=== PATIENT | male | born 2005 | race Caucasian/White ===

== ENCOUNTER 2025-06-30 02:05 | Inpatient (IN) | payer MEDICAID ==
[~2025-06-30] VITALS: Ht 30.5 cm; Wt 0.5 kg
[2025-06-30] VITALS (9 sets, daily range): BP systolic 111; BP diastolic 50; PULSE 70–120; RESP 16–22; O2SAT 94–100
--- NOTE | 2025-06-30 02:24 | ED.PDOC ---
Psychiatric HPI Comments 20-year-old male who came to ER via EMS for overdose. Per EMS, patient has a history of asthma, he picked up at his home, where family saw him lying unresponsive. Suspect of narcotic overdose, so patient was given 2 of Narcan. Upon arrival paramedics, saturating at 40s at room air, was given albuterol Atrovent nebulization. Patient gradually waking up. Upon arrival of the ER, patient admits that he took cocaine and alcohol. Denies being suicidal. REVIEW OF SYSTEMS: General: No fever, no chills, or fatigue HEENT: No sore throat, no earache, no congestion, no neck pain. Cardiac: No chest pain. No palpitations. Lungs: No shortness of breath, no cough. GI: No nausea, no vomiting, no diarrhea, no constipation, no abdominal pain : No dysuria, frequency, or urgency. No hematuria. Musculoskeletal: No joint pain , no joint swelling, no extremity edema. Skin: No rash, no itching. Neuro: No headache, no dizziness, no weakness EXAM: General: Awake, alert and oriented. No acute distress. Skin: Skin in warm, dry and intact. Appropriate color for ethnicity. HEENT: The head is normocephalic and atraumatic. Conjunctivae are clear without exudates or hemorrhage. Sclera is non-icteric. EOM are intact. No signs of nystagmus. Eyelids are normal in appearance without swelling or lesions. Oral mucosa is pink and moist Neck: The neck is supple with normal range of motion. No JVD. Cardiac: Heart rate and rhythm are normal. No murmurs, gallops, or rubs are auscultated. Respiratory: No signs of respiratory distress. Lung sounds are clear in all lobes bilaterally without rales, rhonchi, or wheezes. Abdominal: Abdomen is soft, non-tender without distention. Bowel sounds are present and normoactive in all four quadrants. Extremities: Upper and lower extremities are atraumatic in appearance without deformity or edema. Neurological: The patient is awake, alert and oriented to person, place, and time with normal speech. Speech is clear. There is no facial asymmetry. Psychiatric: Appropriate mood and affect. Good judgement and insight Chief Complaint: Overdose Time Seen by MD: 02:23 Primary Care Provider: [facility] Reviewed Notes: Field Services Manager Notes Information Source: Patient, Emergency Med Personnel Mode of Arrival: EMS Severity: Unable to Care for Self, Unable to Control Self Severity of Pain: Moderate Severity of Mental Status: Moderate Severity of Symptoms: Moderate Timing: Minutes Duration: Since onset Attempt: Ingestion Ingestion: Intentional, Drug(s) Ingested (Cocaine), ETOH Circumstance: Found:Unconscious Current substance abuse: ETOH, Cocaine History of: Alcoholism, Substance Abuse Past Medical History PAST MEDICAL HISTORY: Asthma Surgical History: Denies all surgeries Family History Family History: Reviewed,noncontributory to illness, Unknown Social History Smoker: Non-Smoker Alcohol: Occasionally Drugs: Cocaine, Marijuana Lives In: Home EKG EKG : Pulse Rate (adult): 171 Cardiac Rhythm: Afib Was a procedure done? Was a procedure done?: No Psych Differential Dx OD Differential Dx: Anxiety, Depression, Drug Overdose, Accidental, Intentional, Panic Disorder, Substance Abuse, Suicidal Gesture X-Ray, Labs, Meds, VS Vital Signs Date Time Temp Pulse Resp B/P (MAP) Pulse Ox O2 Delivery O2 Flow Rate FiO2 06/30/25 04:05 145 125/55 (78) 06/30/25 03:52 117 06/30/25 02:44 70 20 97 Room Air* 0 06/30/25 02:44 98.1 180 20 121/78 (92) 97 98.1 06/30/25 02:44 20 93 Room Air* 0 06/30/25 02:24 171 06/30/25 02:10 171 06/30/25 02:05 97.9 84 14 102/68 94 97.9 Lab Test 06/30/25 02:28 06/30/25 02:27 Range/Units Blood Gas Specimen Type Arterial Blood Gas Sample Site Right radial Blood Gas Patient Temperature 37.0 Arterial Blood Date Drawn [id number] Arterial Blood pH 7.264 L 7.350-7.450 Arterial Blood Partial Pressure CO2 39.0 35.0-48.0 mmHg Arterial Blood Partial Pressure O2 77.4 L 83.0-108.0 mmHg Arterial Blood HCO3 17.3 L 21.0-28.0 mmol/L Arterial Blood Oxygen Saturation 93.6 L 94.0-98.0 % Arterial Blood Base Excess -9.1 L -2.0-3.0 mmol/L Arterial Blood Oxyhemoglobin 92.5 L 94.0-98.0 % Arterial Blood Carboxyhemoglobin 0.5 0.5-1.5 % Arterial Blood Methemoglobin 0.7 0.0-1.5 % Jimbo Test Yes Blood Gas Total Hemoglobin 16.60 13.5-17.5 g/dL Blood Gas Modality Nasal cannula Blood Gas Spontaneous Rate 20 FiO2 % 36.0 White Blood Count 13.8 H 4.4-10.8 10^3/uL Red Blood Count 5.45 4.5-5.90 10^6/uL Hemoglobin 16.6 13.5-17.5 g/dL Hematocrit 50.4 41.0-53.0 % Mean Corpuscular Volume 92.5 80.0-100.0 fL Mean Corpuscular Hemoglobin 30.4 28.0-32.0 pg Mean Corpuscular Hemoglobin Concent 32.9 32.0-36.0 g/dL Red Cell Distribution Width 13.4 11.8-14.3 % Platelet Count 249 140-450 10^3/uL Mean Platelet Volume 8.0 6.9-10.8 fL Neutrophils (%) (Auto) 81.9 H 37.0-80.0 % Lymphocytes (%) (Auto) 10.5 10.0-50.0 % Monocytes (%) (Auto) 4.7 0.0-12.0 % Eosinophils (%) (Auto) 2.3 0.0-7.0 % Basophils (%) (Auto) 0.6 0.0-2.0 % Neutrophils # (Auto) 11.3 H 1.6-8.6 10 ^3/uL Lymphocytes # (Auto) 1.5 0.4-5.4 10 ^3/uL Monocytes # (Auto) 0.6 0-1.3 10 ^3/uL Eosinophils # (Auto) 0.3 0-0.8 10 ^3/uL Basophils # (Auto) 0.1 0-0.2 10 ^3/uL Nucleated Red Blood Cells 0.1 % Sodium Level 144 136-145 mmol/L Potassium Level 5.0 3.5-5.1 mmol/L Chloride Level 104 98-107 mmol/L Carbon Dioxide Level 27 20-31 mmol/L Anion Gap 13 5-15 Blood Urea Nitrogen 10 9-23 mg/dL Creatinine 1.27 0.700-1.30 mg/dL Glomerular Filtration Rate Calc 82 >90 mL/min BUN/Creatinine Ratio 7.9 L 10.0-20.0 Serum Glucose 138 H 74-106 mg/dL Calcium Level 8.9 8.7-10.4 mg/dL Troponin I High Sensitivity 43 </=54 ng/L Plasma/Serum Blood Alcohol 120.4 H <10 mg/dL Current Medications Medications (Trade) Dose Ordered Sig/Sekou Route Start Time Stop Time Status Last Admin Ipratropium [place] (Atrovent Medneb) 0.5 mg ONCE ONCE NEB 06/30/25 02:30 06/30/25 02:31 DC 06/30/25 02:44 Methylprednisolone Sodium Succinate (Solu Medrol) 80 mg ONCE ONCE IV 06/30/25 02:30 06/30/25 02:31 DC 06/30/25 02:42 Sodium Chloride 1,000 ml @ 1,000 mls/hr Q1H ONCE IV 06/30/25 02:30 06/30/25 03:29 DC 06/30/25 02:42 Levalbuterol HCl (Xopenex Medneb) 0.625 mg ONCE ONCE NEB 06/30/25 02:30 06/30/25 02:31 DC 06/30/25 02:44 Diltiazem HCl (Cardizem Injection) 20 mg ONCE ONCE IV 06/30/25 03:00 06/30/25 03:01 DC 06/30/25 03:14 Sodium Chloride 1,000 ml @ 1,000 mls/hr Q1H ONCE IV 06/30/25 03:15 06/30/25 04:14 DC 06/30/25 03:25 Sodium Chloride 1,000 ml @ 130 mls/hr Q7H42M ONCE IV 06/30/25 03:15 06/30/25 10:56 06/30/25 03:25 Ceftriaxone Sodium 50 ml @ 100 mls/hr ONCE ONCE IV 06/30/25 03:45 06/30/25 04:14 DC 06/30/25 03:57 Vancomycin HCl 250 ml @ 250 mls/hr ONCE ONCE IV 06/30/25 03:45 06/30/25 04:44 DC 06/30/25 03:57 Time of 1ST Reevaluation: 05:37 Reevaluation 1ST: Improved Patient Education/Counseling: Other (Need for admission) Family Education/Counseling: Other (Need for admission) Departure 1 Departure Time of Disposition: 04:05 Impression: Primary Impression: Asthma exacerbation Additional Impressions: Polysubstance overdose SVT (supraventricular tachycardia) Disposition: 09 ADMITTED INPATIENT Condition: Stable Comments 20-year-old male who presented in the emergency department after overdosing on alcohol and cocaine. Patient was found to be in SVT at a rate of 180s. Heart rate improved with Cardizem. Patient admitted to hospitalist service for further treatment, evaluation and monitoring. Extensive evaluation was performed in attempt to identify or rule out: (See differential diagnosis section) The following tests were ordered, and results were reviewed by me and discussed with patient: (See diagnostic results section) The following test were independently interpreted by me: EKG I reviewed and agreed with the following test results read by other providers: Chest x-ray Additional information was gathered from interviewing the following independent historians: Patient's family members at bedside, EMS personnel Discussion of management or test interpretation with external physician/other qualified health hospice care consultant: N/A Addressed an acute or chronic illness that poses a threat to life or bodily function: SVT, acute asthma exacerbation Decision regarding hospitalization or escalation of hospital level of care: Risk and benefits of admission for further treatment of patient's condition was considered. Due to patient's current clinical condition, high risk of decline and poor outcome if discharged and need for further inpatient management and monitoring, patient will be admitted to the hospital. Discussed with patient. Critical Care Note Critical Care Time?: Yes (45 min-critical care time only) Critical care comment: Due to a high probability of clinically significant, life threatening deterioration, the patient required my highest level of preparedness to intervene emergently and I personally spent this critical care time directly and personally managing the patient. This critical care time included obtaining a history; examining the patient; pulse oximetry; ordering and review of studies; arranging urgent treatment with development of a management plan; evaluation of patient's response to treatment; frequent reassessment; and, discussions with other providers. This critical care time was performed to assess and manage the high probability of imminent, life-threatening deterioration that could result in multi-organ failure. It was exclusive of separately billable procedures and treating other patients and teaching time. Please see my other sections and the rest of the note for further information on patient assessment and treatment. Stability Stability form required: No Heart Score Heart Score: Heart Score Response (Comments) Value History N/A 0 EKG N/A 0 Age N/A 0 Risk Factors N/A 0 Troponin N/A 0 Total 0 I personally scribed for LAUREN CHAUDHRY MD ([email or web address]) on 06/30/25 at 02:24. Electronically submitted by Krishna Keating ([facility]). I personally scribed for LAUREN CHAUDHRY MD ([email or web address]) on 06/30/25 at 02:24. Electronically submitted by Krishna Ketaing ([facility]). LAUREN CHAUDHRY MD Jun 30, 2025 02:24
[2025-06-30] MEDS: SODIUM CHLORIDE 0.9% 1,000 ML IV ONE ×3 (02:42→03:25)
[2025-06-30] MEDS: methylPREDNISolone SOD SUCC 125 MG/2 ML VL IV ONE (02:42)
[2025-06-30] MEDS: LEVALBUTEROL HCL 1.25 MG/3 ML NEB NEB ONE (02:44)
[2025-06-30] MEDS: IPRATROPIUM BROM 0.5 MG/2.5ML INH SOL NEB ONE (02:44)
[2025-06-30 02:50] LABS: Base Excess -9.1 mmol/L (-2.0-3.0)
[2025-06-30 02:50] LABS: Hematocrit 50.4 % (41.0-53.0); Hemoglobin 16.6 g/dL (13.5-17.5); Mean Corpuscular Hemoglobin 30.4 pg (28.0-32.0); Mean Corpuscular Volume 92.5 fL (80.0-100.0); Nucleated Red Blood Cells % 0.1 %
--- NOTE | 2025-06-30 03:08 | DVH ---
CHEST RADIOGRAPH Indication: Shortness of breath Technique: Single frontal view of the chest was obtained COMPARISON: None FINDINGS: The patient is moderately rotated to the right. Lines and Tubes: None Lungs: Clear Pleura: No effusion. No pneumothorax. Cardiomediastinal contours: Unremarkable Bones: Unremarkable IMPRESSION: 1. No radiographic evidence of acute cardiopulmonary abnormality.
[2025-06-30] MEDS: dilTIAZem 25 MG/5 ML VIAL IV ONE ×2 (03:14→06:30)
[2025-06-30 03:48] LABS: Chloride 104 mmol/L (98-107); Potassium 5.0 mmol/L (3.5-5.1); Sodium 144 mmol/L (136-145)
[2025-06-30 03:49] LABS: Anion Gap 13 (5-15); Calcium 8.9 mg/dL (8.7-10.4); Carbon Dioxide 27 mmol/L (20-31)
[2025-06-30 03:54] LABS: BUN/Creatinine Ratio 7.9 (10.0-20.0); Blood Urea Nitrogen 10 mg/dL (9-23)
[2025-06-30 03:55] LABS: Glucose 138 mg/dL (74-106)
[2025-06-30] MEDS: VANCOMYCIN 1GM/250ML KIT 250 ML IV ONE (03:57)
[2025-06-30] MEDS ORDERED: DOCUSATE SOD 100 MG CAP PO PRN (06:00)
[2025-06-30] MEDS ORDERED: NITROGLYCERIN 0.4 MG SL TAB SL PRN (06:00)
[2025-06-30] MEDS ORDERED: MORPHINE SULFATE INJ 2 MG/ml SYRG IV PRN (06:00)
[2025-06-30] MEDS ORDERED: ACETAMINOPHEN 325 MG TAB PO PRN (06:00)
[2025-06-30] MEDS ORDERED: ONDANSETRON HCL 4 MG/2 ML VIAL IV PRN (06:00)
[2025-06-30] MEDS ORDERED: LEVALBUTEROL HCL 1.25 MG/3 ML NEB NEB SCH (06:00)
--- NOTE | 2025-06-30 06:06 | DVHHP2 ---
History of Present Illness Reason for Visit: Polysubstance overdose History of Present Illness The patient is a 20-year-old male with past medical history of asthma and polydrug abuse who presented to [facility] ED for evaluation of overdose. As reported by EMS, patient was picked up at his home unresponsive, O2 saturation in the 40s on room air, and was given 2 mg of Narcan, breathing treatment with positive effect. Patient gradually waking up. Patient was seen and evaluated in the ED admit that he took cocaine and alcohol, laboratory data shows WBC 13.8, platelets 249, sodium 144, potassium 5.0, BUN 10, creatinine 1.27, glucose 138, calcium 8.9, troponin 43, serum alcohol 120.4, blood pressure 125/55, heart rate 171 trending down to 122, temperature 98.1 F, O2 saturation 97% on oxygen. Chest x-ray show no evidence of acute cardiopulmonary abnormality. Please see medication orders section in the computer. On my assessment, patient remains mild altered, denies suicidal ideation, no diaphoresis, currently on oxygen, no diarrhea, no vomiting, no fever, no chills. Patient was admitted for further evaluation and medical management. Past Medical History Asthma Past Surgical History Denies all surgeries Family History Reviewed, noncontributory to the management of this case. Past Social History The patient lives at home, denies smoking, drinks alcohol occasionally, uses cocaine and marijuana. Review of Systems Constitutional: Yes: Weakness; No: Fever, Chills, Sweats, Malaise, Other Eyes: No: Pain, Vision change, Conjunctivae inflammation, Eyelid inflammation, Other, Redness ENT: No: Ear pain, Ear discharge, Nose pain, Nose discharge, Nose congestion, Mouth pain, Mouth swelling, Throat pain, Throat swelling, Other Respiratory: No: Cough, Dry, Shortness of breath, SOB with excertion, Wheezing, Hemoptysis, Pleuritic Pain, Sputum, Wheezing, Other Cardiovascular: No: Chest Pain, Palpitations, Orthopnea, Paroxysmal Noc. Dyspnea, Edema, Lt Headedness, Other Gastrointestinal: No: Nausea, Vomiting, Abdominal Pain, Diarrhea, Constipation, Melena, Hematochezia, Other Genitourinary: No Dysuria, No Frequency, No Incontinence, No Hematuria, No Retention, No Other Musculoskeletal: No: other, neck pain, shoulder pain, arm pain, back pain, hand pain, leg pain, foot pain Skin: No: Rash, Lesions, Jaundice, Bruising, Other Neurological: No: Weakness, Numbness, Incoordination, Change in speech, Confusion, Seizures, Other Allergies: Coded Allergies: NO KNOWN ALLERGIES (Unverified , 10/24/11) Medications Current Medications Medications Dose Ordered Sig/Sekou Route Start Time Stop Time Status Last Admin Dose Admin Levalbuterol HCl 0.625 mg Q6HR NEB 06/30/25 06:00 Cancel Exam Vital Signs Vital Signs Date Time Temp Pulse Resp B/P (MAP) Pulse Ox O2 Delivery O2 Flow Rate FiO2 06/30/25 04:05 145 125/55 (78) 06/30/25 02:44 20 97 Room Air* 0 21 06/30/25 02:44 98.1 98.1 General Appearance: Alert, Cooperative, No acute distress, Other (Oriented x2) HEENT: Atraumatic, PERRLA, EOMI, Mucous membr. moist/pink Respiratory: Normal air movement Cardiovascular: Regular rate, Normal S1, Normal S2, No murmurs Abdominal: Normal bowel sounds, Soft, No tenderness, No hepatospenomegaly, No masses Extremities: No clubbing, No cyanosis, No edema, Normal pulses, No tenderness/swelling Skin: No rashes, No significant lesion Neuro: Normal speech, Normal tone, Sensation intact, Cranial nerves 3-12 NL, Reflexes 2+ Psych/Mental Status: Mental status NL, Mood NL Labs/Xrays Labs Test 06/30/25 02:28 06/30/25 02:27 Range/Units Blood Gas Specimen Type Arterial Blood Gas Sample Site Right radial Blood Gas Patient Temperature 37.0 Arterial Blood Date Drawn [id number] Arterial Blood pH 7.264 L 7.350-7.450 Arterial Blood Partial Pressure CO2 39.0 35.0-48.0 mmHg Arterial Blood Partial Pressure O2 77.4 L 83.0-108.0 mmHg Arterial Blood HCO3 17.3 L 21.0-28.0 mmol/L Arterial Blood Oxygen Saturation 93.6 L 94.0-98.0 % Arterial Blood Base Excess -9.1 L -2.0-3.0 mmol/L Arterial Blood Oxyhemoglobin 92.5 L 94.0-98.0 % Arterial Blood Carboxyhemoglobin 0.5 0.5-1.5 % Arterial Blood Methemoglobin 0.7 0.0-1.5 % Jimob Test Yes Blood Gas Total Hemoglobin 16.60 13.5-17.5 g/dL Blood Gas Modality Nasal cannula Blood Gas Spontaneous Rate 20 FiO2 % 36.0 White Blood Count 13.8 H 4.4-10.8 10^3/uL Red Blood Count 5.45 4.5-5.90 10^6/uL Hemoglobin 16.6 13.5-17.5 g/dL Hematocrit 50.4 41.0-53.0 % Mean Corpuscular Volume 92.5 80.0-100.0 fL Mean Corpuscular Hemoglobin 30.4 28.0-32.0 pg Mean Corpuscular Hemoglobin Concent 32.9 32.0-36.0 g/dL Red Cell Distribution Width 13.4 11.8-14.3 % Platelet Count 249 140-450 10^3/uL Mean Platelet Volume 8.0 6.9-10.8 fL Neutrophils (%) (Auto) 81.9 H 37.0-80.0 % Lymphocytes (%) (Auto) 10.5 10.0-50.0 % Monocytes (%) (Auto) 4.7 0.0-12.0 % Eosinophils (%) (Auto) 2.3 0.0-7.0 % Basophils (%) (Auto) 0.6 0.0-2.0 % Neutrophils # (Auto) 11.3 H 1.6-8.6 10 ^3/uL Lymphocytes # (Auto) 1.5 0.4-5.4 10 ^3/uL Monocytes # (Auto) 0.6 0-1.3 10 ^3/uL Eosinophils # (Auto) 0.3 0-0.8 10 ^3/uL Basophils # (Auto) 0.1 0-0.2 10 ^3/uL Nucleated Red Blood Cells 0.1 % Sodium Level 144 136-145 mmol/L Potassium Level 5.0 3.5-5.1 mmol/L Chloride Level 104 98-107 mmol/L Carbon Dioxide Level 27 20-31 mmol/L Anion Gap 13 5-15 Blood Urea Nitrogen 10 9-23 mg/dL Creatinine 1.27 0.700-1.30 mg/dL Glomerular Filtration Rate Calc 82 >90 mL/min BUN/Creatinine Ratio 7.9 L 10.0-20.0 Serum Glucose 138 H 74-106 mg/dL Calcium Level 8.9 8.7-10.4 mg/dL Troponin I High Sensitivity 43 </=54 ng/L Plasma/Serum Blood Alcohol 120.4 H <10 mg/dL PATIENT: HEBER RUIZ ACCT: [id number] UNIT: [id number] : 2005 LOC: ER ROOM / BED: / AGE / SEX: 20 / M ADM STATUS: REG ER SERVICE 0219 ORDERING PHYSICIAN: LAUREN CHAUDHRY MD PROCEDURE(s): CXR1 - CHEST XRAY 1 VIEW REASON: Shortness of breath ORDER NUMBER(s): [id number], ACCESSION NUMBER(s): [id number] CHEST RADIOGRAPH Indication: Shortness of breath Technique: Single frontal view of the chest was obtained COMPARISON: None FINDINGS: The patient is moderately rotated to the right. Lines and Tubes: None Lungs: Clear Pleura: No effusion. No pneumothorax. Cardiomediastinal contours: Unremarkable Bones: Unremarkable IMPRESSION: 1. No radiographic evidence of acute cardiopulmonary abnormality. SEPSIS Sepsis Screen Date sepsis recognized/suspect: Jun 30, 2025 Time Sepsis recognized/suspect: 0246 Recent Procedure: No On Antibiotic Therapy: No Respiratory Rate >20: No Heart Rate >90: No Temp<36 C (96.8 F) or >38.3 C: No SBP <90 or MAP <65 mmHG: No New Acute Mental Status Change: No Is the patient on CPAP, BIPAP,: No Physician Orders Electrocardigram (06/30/25 02:14) Abg W/ Co-Ox (06/30/25 02:19) Chest Xray 1 View (06/30/25 02:19) Drug Screen (06/30/25 02:19) Rn Integrity (06/30/25 ) Continous Pulse Oximetry (06/30/25 02:19) Saline Lock (06/30/25 02:19) Sodium Chloride 0.9% (06/30/25 03:15) Blood Culture (06/30/25 03:04) Urinalysis (06/30/25 03:04) Complete Blood Count (06/30/25 05:56) Comprehensive Metabolic Panel (06/30/25 05:56) Ceftriaxone Ivpb Rocephin (06/30/25 09:00) Thiamine Inj (06/30/25 06:00) Thiamine Inj (06/30/25 10:00) Folic Acid Ivpb (06/30/25 10:00) Folic Acid Ivpb (06/30/25 06:00) Multiple Vitamin Tablet (Mvi Tab) (06/30/25 10:00) Levalbuterol Hcl (Xopenex Medneb) (06/30/25 06:00) Famotidine Injection (Pepcid Injection) (06/30/25 10:00) Diltiazem Injection (Cardizem Injection) (06/30/25 06:00) * Cardiology Consult (06/30/25 05:56) Admit (06/30/25 05:56) Allergies (06/30/25 05:56) Code Status (06/30/25 05:56) Sodium Chloride Lock (Saline Lock Ns) (06/30/25 06:00) Oxygen Per Hour (06/30/25 05:56) Ondansetron Hcl (Zofran) (06/30/25 06:00) Docusate Sodium Capsule (Colace Capsule) (06/30/25 06:00) Fall Risk Precautions In Place QSHIFT (06/30/25 05:56) Complete Blood Count (07/01/25 04:00) Comprehensive Metabolic Panel (07/01/25 04:00) Cardiac Diet-2gna,Lofat,Lochol (06/30/25 Breakfast) Condition: Serious (06/30/25 05:56) Acetaminophen Tablet (Tylenol Tablet) (06/30/25 06:00) Maintain Bed Rest (06/30/25 05:56) Sequential Compression Device (06/30/25 ) Nitroglycerin Sublingual (Ntrostat Subli (06/30/25 06:00) Morphine Sulfate Injection (06/30/25 06:00) Stat Ekg For Chest Pain (06/30/25 05:56) Notify Of Changes From Base (06/30/25 05:56) Construction Project Mgr For 24 Hours (06/30/25 05:56) Emergency Dysrhythmia Protocol (06/30/25 05:56) Rhythm Strips Once Every Shift (06/30/25 05:56) Oxygen By Nasal Cannula (06/30/25 05:56) Vital Signs Date Time Temp Pulse Resp B/P (MAP) Pulse Ox O2 Delivery O2 Flow Rate FiO2 06/30/25 04:05 145 125/55 (78) 06/30/25 03:52 117 06/30/25 02:44 70 20 97 Room Air* 0 21 06/30/25 02:44 98.1 180 20 121/78 (92) 97 98.1 06/30/25 02:44 20 93 Room Air* 0 21 06/30/25 02:24 171 06/30/25 02:10 171 06/30/25 02:05 97.9 84 14 102/68 94 97.9 Laboratory Tests Test 06/30/25 02:27 White Blood Count 13.8 10^3/uL (4.4-10.8) H Medications Medications Dose Ordered Sig/Sekou Route Start Time Stop Time Status Last Admin Dose Admin Ceftriaxone Sodium 50 ml @ 100 mls/hr ONCE ONCE IV 06/30/25 03:45 06/30/25 04:14 DC 06/30/25 03:57 100 MLS/HR Diltiazem HCl 20 mg ONCE ONCE IV 06/30/25 03:00 06/30/25 03:01 DC 06/30/25 03:14 20 MG Ipratropium [place] 0.5 mg ONCE ONCE NEB 06/30/25 02:30 06/30/25 02:31 DC 06/30/25 02:44 0.5 MG Levalbuterol HCl 0.625 mg ONCE ONCE NEB 06/30/25 02:30 06/30/25 02:31 DC 06/30/25 02:44 0.625 MG Methylprednisolone Sodium Succinate 80 mg ONCE ONCE IV 06/30/25 02:30 06/30/25 02:31 DC 06/30/25 02:42 80 MG Sodium Chloride 1,000 ml @ 130 mls/hr Q7H42M ONCE IV 06/30/25 03:15 06/30/25 10:56 06/30/25 03:25 130 MLS/HR Sodium Chloride 1,000 ml @ 1,000 mls/hr Q1H ONCE IV 06/30/25 02:30 06/30/25 03:29 DC 06/30/25 02:42 1,000 MLS/HR Sodium Chloride 1,000 ml @ 1,000 mls/hr Q1H ONCE IV 06/30/25 03:15 06/30/25 04:14 DC 06/30/25 03:25 1,000 MLS/HR Vancomycin HCl 250 ml @ 250 mls/hr ONCE ONCE IV 06/30/25 03:45 06/30/25 04:44 DC 06/30/25 03:57 250 MLS/HR Assessment/Plan Assessment/Plan Polysubstance overdose Asthma exacerbation SVT (supraventricular tachycardia) Generalized weakness Plan 1. Admit to step-down unit 2. Breathing treatment 3. Pain control management 4. Management of fluids and electrolytes 5. Consultation for Cardiology 6. Diagnostic tests chest x-ray 7. DVT prophylaxis-on SCDs 8. Repeat labs CBC, CMP in a.m. 9. Continue with current medical management 10. Treatment plan discussed with patient and RN. Patient will need reinforcement of information given mental status. Plan discussed with: Patient, Other (RN) My Orders Orders - ESTEPHANIA VÁSQUEZ DNP Procedure Category Date Status Time Complete Blood Count LAB 06/30/25 Verified 05:56 Comprehensive LAB 06/30/25 Verified Metabolic Panel 05:56 Ceftriaxone Ivpb PHA 06/30/25 Verified Rocephin 09:00 Thiamine Inj PHA 06/30/25 Verified 06:00 Thiamine Inj PHA 06/30/25 Verified 10:00 Folic Acid Ivpb PHA 06/30/25 Verified 10:00 Folic Acid Ivpb PHA 06/30/25 Verified 06:00 Multiple Vitamin PHA 06/30/25 Verified Tablet (Mvi Tab) 10:00 Levalbuterol Hcl PHA 06/30/25 Verified (Xopenex Medneb) 06:00 Famotidine Injection PHA 06/30/25 Verified (Pepcid Injection) 10:00 Diltiazem Injection PHA 06/30/25 Verified (Cardizem Injection) 06:00 * Cardiology Consult CONS 06/30/25 Verified 05:56 Admit ADMIT 06/30/25 Verified 05:56 Allergies WILIAM 06/30/25 Verified 05:56 Code Status CODE 06/30/25 Verified 05:56 Sodium Chloride Lock PHA 06/30/25 Verified (Saline Lock Ns) 06:00 Oxygen Per Hour RT 06/30/25 Verified 05:56 Ondansetron Hcl PHA 06/30/25 Verified (Zofran) 06:00 Docusate Sodium PHA 06/30/25 Verified Capsule (Colace 06:00 Fall Risk Precautions [facility] 06/30/[address] 05:56 Complete Blood Count LAB 07/01/25 Verified 04:00 Comprehensive LAB 07/01/25 Verified Metabolic Panel 04:00 Cardiac DIET 06/30/25 Verified Diet-2gna,Lofat,Lochol Breakfast Condition: Serious [facility] 06/30/25 Verified 05:56 Acetaminophen Tablet [facility] 06/30/25 Verified (Tylenol Tablet) 06:00 Maintain Bed Rest [facility] 06/30/25 Verified 05:56 Sequential [facility] 06/30/25 Verified Compression Device Nitroglycerin [facility] 06/30/25 Verified Sublingual (Ntrostat 06:00 Morphine Sulfate [facility] 06/30/25 Verified Injection 06:00 Stat Ekg For Chest [facility] 06/30/25 Verified Pain 05:56 Notify Of Changes [facility] 06/30/25 Verified From Base 05:56 Construction Project Mgr For [facility] 06/30/25 Verified 24 Hours 05:56 Emergency Dysrhythmia [facility] 06/30/25 Verified Protocol 05:56 Rhythm Strips Once [facility] 06/30/25 Verified Every Shift 05:56 Oxygen By Nasal RT 06/30/25 Verified Cannula 05:56 Problem List: (1) Polysubstance overdose (2) Asthma exacerbation (3) SVT (supraventricular tachycardia) (4) Generalized weakness Date of Service: Jun 30, 2025 Billing Provider: ESTEPHANIA VÁSQUEZ DNP Common Visit Codes: [id number] INP/OBS CARE (HIGH) ESTEPHANIA VÁSQUEZ DNP Jun 30, 2025 06:06
[2025-06-30] MEDS: LEVALBUTEROL HCL 1.25 MG/3 ML NEB ONE (06:25)
[2025-06-30] MEDS: SODIUM CHLOR 0.9% PF (SALINE LOCK) 10ML VIAL/SYR IV SCH (06:26)
[2025-06-30] MEDS: THIAMINE 100mg/ml INJ (200mg/2ml VIAL) IV ONE (06:26)
[2025-06-30] MEDS: MULTIPLE VITAMIN TAB PO ONE (06:27)
[2025-06-30] MEDS: FOLIC ACID 1 MG in D5W 5% 50 ML INJ ONE (07:19)
[2025-06-30] MEDS: LEVALBUTEROL HCL 1.25 MG/3 ML NEB NEB SCH (08:23)
--- NOTE | 2025-06-30 09:16 | ECG ---
[facility] Test Date: 2025-06-30 Test Time: 09:14:28 Pat Name: HEBER RUIZ Department: Room: [address] [place] [address] Gender: M Finish Patcher: FREDRICK : 2005 Requested By: LAUREN CHAUDHRY Order Number: [id number] Reading MD: Alec Kelley Measurements Intervals [place] Rate: 85 P: 0 VT: 0 QRS: 8 QRSD: 96 T: 40 QT: 360 QTc: 428 Interpretive Statements Atrial fibrillation Electronically Signed On 07-01-2025 19:18:11 PDT by Alec Kelley Please click the below link to view image of tracing.
--- NOTE | 2025-06-30 09:31 | DVHINCON2 ---
Date Seen: Jun 30, 2025 Referring Physician RIGO Cade Reason for Consultation AFib with RVR History of Present Illness 20-year-old male with a history of asthma and drug abuse presents to the ED after a drug overdose. In the ED, he was noted to be in eight fib with RVR, prompting cardiology consultation. He was given one dose of IV diltiazem, after which he has ventricular rate improved to the 90s. On assessment, the patient remains in atrial fibrillation but denies chest pain, shortness of breath, palpitations, lightheadedness, or syncope. Past Medical History Asthma Past Surgical History Denies Family History Reviewed, non-contributory to the management of this case. Social History The patient lives at home, denies smoking, alcohol or illicit drugs abuse. Allergies: Coded Allergies: NO KNOWN ALLERGIES (Unverified , 10/24/11) Current Medications Current Medications Medications (Trade) Dose Ordered Sig/Sekou Route PRN Reason Start Time Stop Time Status Last Admin Levalbuterol HCl (Xopenex Medneb) 0.625 mg Q6HR NEB 06/30/25 06:00 Cancel Ceftriaxone Sodium 50 ml @ 100 mls/hr DAILY@0400 IV 07/01/25 04:00 Thiamine HCl 100 mg DAILY IV 06/30/25 10:00 Folic Acid 1 mg/ Dextrose 50.2 ml @ 200.8 mls/ hr DAILY INJ 06/30/25 10:00 Multivitamins (Mvi Tab) 1 tab DAILY PO 06/30/25 10:00 Levalbuterol HCl (Xopenex Medneb) 0.625 mg Q6HR NEB 06/30/25 06:00 Famotidine (Pepcid Injection) 20 mg Q12HR IV 06/30/25 10:00 Sodium Chloride (Saline Lock Ns) 10 ml Q8HR IV 06/30/25 06:00 06/30/25 06:26 Ondansetron HCl (Zofran) 4 mg Q4HP PRN IV NAUSEA / VOMITING 06/30/25 06:00 Docusate Sodium (Colace Capsule) 100 mg BIDPRN PRN PO FOR CONSTIPATION 06/30/25 06:00 Acetaminophen (Tylenol Tablet) 650 mg Q6HP PRN PO PAIN SCALE 1-3 OR TEMP>100.4 06/30/25 06:00 Nitroglycerin (Ntrostat Sublingual) 0.4 mg Q5MINP PRN SL FOR CHEST PAIN 06/30/25 06:00 Morphine Sulfate 2 mg Q30M PRN IV FOR CHEST PAIN 06/30/25 06:00 Amiodarone HCL/ Dextrose 200 ml @ 16.66 mls/ hr Q12H IV 06/30/25 15:45 UNV Review of Systems Constitutional: No symptom reported Ears, Nose, & Throat: No symptom reported Eyes: No symptom reported Neurological: No symptoms reported Pulmonary/Respiratory: No symptom reported Cardiovascular: No symptom reported Gastrointestinal: No symptom reported Genitourinary: No symptom reported Musculoskeletal: No symptom reported Skin: No symptom reported Psychiatric: No symptom reported Endocrine: No symptom reported Hemotologic/Lymphatic: No symptom reported Vital Signs Vital Signs Date Time Temp Pulse Resp B/P (MAP) Pulse Ox O2 Delivery O2 Flow Rate FiO2 06/30/25 09:14 85 06/30/25 07:22 21 111/50 100 2.0 06/30/25 07:15 Nasal Cannula* 28 06/30/25 07:15 98.2 98.2 Physical Exam INITIAL VITAL SIGNS: Reviewed by me GENERAL: Alert and interactive. No acute distress. HEAD: Head is normocephalic and atraumatic. EYES: EOMI, PERRL. No scleral icterus. No conjunctival injection. ENT: Moist mucous membranes. NECK: Supple, No masses, Full range of motion. RESPIRATORY: No tachypnea. Clear breath sounds bilaterally. No wheezing, rales, rhonchi. CV: Atrial fibrillation GI/: Active bowel sounds, soft, nondistended, nontender. No guarding. No rebound. No masses. No CVA tenderness. INTEGUMENTARY: Warm and dry. No obvious rashes. NEUROLOGIC: Alert and oriented. Face is symmetric. Speech is normal. Moves all extremities equally. Labs/Diagnostic Data Labs Test 06/30/25 02:28 06/30/25 02:27 Range/Units Blood Gas Specimen Type Arterial Blood Gas Sample Site Right radial Blood Gas Patient Temperature 37.0 Arterial Blood Date Drawn [id number] Arterial Blood pH 7.264 L 7.350-7.450 Arterial Blood Partial Pressure CO2 39.0 35.0-48.0 mmHg Arterial Blood Partial Pressure O2 77.4 L 83.0-108.0 mmHg Arterial Blood HCO3 17.3 L 21.0-28.0 mmol/L Arterial Blood Oxygen Saturation 93.6 L 94.0-98.0 % Arterial Blood Base Excess -9.1 L -2.0-3.0 mmol/L Arterial Blood Oxyhemoglobin 92.5 L 94.0-98.0 % Arterial Blood Carboxyhemoglobin 0.5 0.5-1.5 % Arterial Blood Methemoglobin 0.7 0.0-1.5 % Jimbo Test Yes Blood Gas Total Hemoglobin 16.60 13.5-17.5 g/dL Blood Gas Modality Nasal cannula Blood Gas Spontaneous Rate 20 FiO2 % 36.0 White Blood Count 13.8 H 4.4-10.8 10^3/uL Red Blood Count 5.45 4.5-5.90 10^6/uL Hemoglobin 16.6 13.5-17.5 g/dL Hematocrit 50.4 41.0-53.0 % Mean Corpuscular Volume 92.5 80.0-100.0 fL Mean Corpuscular Hemoglobin 30.4 28.0-32.0 pg Mean Corpuscular Hemoglobin Concent 32.9 32.0-36.0 g/dL Red Cell Distribution Width 13.4 11.8-14.3 % Platelet Count 249 140-450 10^3/uL Mean Platelet Volume 8.0 6.9-10.8 fL Neutrophils (%) (Auto) 81.9 H 37.0-80.0 % Lymphocytes (%) (Auto) 10.5 10.0-50.0 % Monocytes (%) (Auto) 4.7 0.0-12.0 % Eosinophils (%) (Auto) 2.3 0.0-7.0 % Basophils (%) (Auto) 0.6 0.0-2.0 % Neutrophils # (Auto) 11.3 H 1.6-8.6 10 ^3/uL Lymphocytes # (Auto) 1.5 0.4-5.4 10 ^3/uL Monocytes # (Auto) 0.6 0-1.3 10 ^3/uL Eosinophils # (Auto) 0.3 0-0.8 10 ^3/uL Basophils # (Auto) 0.1 0-0.2 10 ^3/uL Nucleated Red Blood Cells 0.1 % Sodium Level 144 136-145 mmol/L Potassium Level 5.0 3.5-5.1 mmol/L Chloride Level 104 98-107 mmol/L Carbon Dioxide Level 27 20-31 mmol/L Anion Gap 13 5-15 Blood Urea Nitrogen 10 9-23 mg/dL Creatinine 1.27 0.700-1.30 mg/dL Glomerular Filtration Rate Calc 82 >90 mL/min BUN/Creatinine Ratio 7.9 L 10.0-20.0 Serum Glucose 138 H 74-106 mg/dL Calcium Level 8.9 8.7-10.4 mg/dL Troponin I High Sensitivity 43 </=54 ng/L Plasma/Serum Blood Alcohol 120.4 H <10 mg/dL PROCEDURE(s): CXR1 - CHEST XRAY 1 VIEW REASON: Shortness of breath ORDER NUMBER(s): [id number], ACCESSION NUMBER(s): [id number] CHEST RADIOGRAPH Indication: Shortness of breath Technique: Single frontal view of the chest was obtained COMPARISON: None FINDINGS: The patient is moderately rotated to the right. Lines and Tubes: None Lungs: Clear Pleura: No effusion. No pneumothorax. Cardiomediastinal contours: Unremarkable Bones: Unremarkable IMPRESSION: 1. No radiographic evidence of acute cardiopulmonary abnormality. Assessment AFib with RVR, CHADS-VASc score- 0 Polysubstance abuse Obesity Plan/Recommendation (Dr. Hoskins ): * Antiarrhythmic amiodarone per protocol * No anticoagulation indicated at this time given CHADS-VASc score = 0 * Monitor electrolytes and replete as needed * Extensive counseling on cessation of substance abuse * Close cardiac monitoring This medical document was created using an electronic medical record system with voice recognition software and computerized dictation system. Although this document has been carefully reviewed, there might still be some phonetic and typographical errors. Occasional wrong-word or ``sound-alike substitutions may have occurred due to the inherent limitations of voice recognition software. These areas are purely typographical due to imperfections of the software programs and do not reflect any compromise in the patient's medical care. Please read the chart carefully and recognize, using context, where these substitutions have occurred. Plan discussed with: Patient Plan discussed with: Patient NYHA Physical activity limitations: NA Date of Service: Jun 30, 2025 Billing Provider: MIKE HOSKINS MD Cardiology Common Codes: CONSULT ONLY Cardiology Consultation Codes: [id number] CONSULT <45MIN PAYAM SIMS Jun 30, 2025 09:31
[2025-06-30] MEDS: AMIODARONE BOLUS KIT 100 ML IV ONE (09:43)
[2025-06-30] MEDS: FOLIC ACID 1 MG in D5W 5% 50 ML INJ SCH (09:43)
[2025-06-30 09:56] LABS: Triglycerides 107.0 mg/dL (< 150)
[2025-06-30 09:57] LABS: Magnesium 2.3 mg/dL (1.6-2.6)
[2025-06-30 09:58] LABS: Cholesterol 189.0 mg/dL (< 200); HDL Cholesterol 60.0 mg/dL (40-59)
[2025-06-30] MEDS: FAMOTIDINE (10MG/ML) 2ML VL IV SCH (10:04)
[2025-06-30] MEDS: MULTIPLE VITAMIN TAB PO SCH (10:04)
[2025-06-30] MEDS: THIAMINE 100mg/ml INJ (200mg/2ml VIAL) IV SCH (10:04)
[2025-06-30] MEDS: AMIODARONE 360mg/200mL PREMIX 200 ML IV ONE (10:05)
[2025-06-30 10:07] LABS: Urine Protein, UAD TRACE (Negative)
[2025-06-30 10:16] LABS: Amphetamine Screen, Urine Neg (NEGATIVE); Barbiturate Scree,Urine Neg (NEGATIVE); Benzodiazephine Screen, Urine Neg (NEGATIVE); Cannabinoid Screen, Urine Neg (NEGATIVE); Cocaine Screen, Urine Pos (NEGATIVE); Opiate Scree,Urine Neg (NEGATIVE); Phencyclidine Screen, Urine Neg (NEGATIVE)
--- NOTE | 2025-06-30 13:16 | DVHPN2 ---
Subjective denies any complaints/looks rested Changes from previous H/P or p: No Changes Eyes: No Pain, No Vision change, No Conjunctivae inflammation, No Eyelid inflammation, No Other, No Redness ENT: No Ear pain, No Ear discharge, No Nose pain, No Nose discharge, No Nose congestion, No Mouth pain, No Mouth swelling, No Throat pain, No Throat swelling, No Other Cardiovascular: No Chest Pain, No Palpitations, No Orthopnea, No Paroxysmal Noc. Dyspnea, No Edema, No Lt Headedness, No Other Respiratory: No Cough, No Dry, No Shortness of breath, No SOB with excertion, No Wheezing, No Hemoptysis, No Pleuritic Pain, No Sputum, No Other Gastrointestinal: No Nausea, No Vomiting, No Abdominal Pain, No Diarrhea, No Constipation, No Melena, No Hematochezia, No Other Genitourinary: No Dysuria, No Frequency, No Incontinence, No Hematuria, No Retention, No Other Musculoskeletal: No other, No neck pain, No shoulder pain, No arm pain, No back pain, No hand pain, No leg pain, No foot pain Skin: No Rash, No Lesions, No Jaundice, No Bruising, No Other Objective Vitals Vital Signs Date Time Temp Pulse Resp B/P (MAP) Pulse Ox O2 Delivery O2 Flow Rate FiO2 06/30/25 12:00 96 20 113/69 (84) 96 06/30/25 11:16 Nasal Cannula* 2 28 06/30/25 07:15 98.2 98.2 General Appearance: Alert, Oriented X3, Cooperative, No acute distress Lungs: Clear to auscultation, Normal air movement Cardiovascular: Regular rate, Normal S1, Normal S2, No murmurs Musculoskeletal: Normal sensory function, Normal motor function Neuro: Normal gait, Normal speech, Strength at 5/5 X4 ext, Normal tone, S ensation intact, Cranial nerves 3-12 NL, Reflexes 2+ Psych/Mental Status: Mental status NL, Mood NL Medications Current Medications Medications Dose Ordered Sig/Sekou Route Start Time Stop Time Status Last Admin Dose Admin Levalbuterol HCl 0.625 mg Q6HR NEB 06/30/25 06:00 Cancel Ceftriaxone Sodium 50 ml @ 100 mls/hr DAILY@0400 IV 07/01/25 04:00 Thiamine HCl 100 mg DAILY IV 06/30/25 10:00 06/30/25 10:04 100 MG Folic Acid 1 mg/ Dextrose 50.2 ml @ 200.8 mls/ hr DAILY INJ 06/30/25 10:00 06/30/25 09:43 200.8 MLS/HR Multivitamins 1 tab DAILY PO 06/30/25 10:00 06/30/25 10:04 1 TAB Levalbuterol HCl 0.625 mg Q6HR NEB 06/30/25 06:00 06/30/25 11:16 0.625 MG Famotidine 20 mg Q12HR IV 06/30/25 10:00 06/30/25 10:04 20 MG Sodium Chloride 10 ml Q8HR IV 06/30/25 06:00 06/30/25 06:26 10 ML Docusate Sodium 100 mg BIDPRN PRN PO 06/30/25 06:00 Acetaminophen 650 mg Q6HP PRN PO 06/30/25 06:00 Amiodarone HCL/ Dextrose 200 ml @ 16.66 mls/ hr Q12H IV 06/30/25 15:45 Laboratory Results Laboratory Tests 06/30/25 02:27 Chemistry Test 06/30/25 02:27 Calcium Level 8.9 mg/dL (8.7-10.4) Magnesium Level 2.3 mg/dL (1.6-2.6) Lipid panel Test 06/30/25 02:27 Cholesterol Level 189 mg/dL (< 200) HDL Cholesterol 60 mg/dL (40-59) H Triglycerides Level 107 mg/dL (< 150) HgA1c, TSH Test 06/30/25 02:27 Hemoglobin A1c Pending Thyroid Stimulating Hormone (TSH) 1.07 uIU/mL (0.55-4.78) Urinalysis Test 06/30/25 08:57 Urine Color Light-yellow (Yellow) Urine Clarity Clear (Clear) Urine pH 5.0 (5.0-9.0) Urine Specific [place] 1.013 (1.001-1.035) Urine Protein Trace (Negative) H Urine Ketones 1+ (Negative) H Urine Blood Negative /uL (Negative) Urine Nitrite Negative (Negative) Urine Bilirubin Negative (Negative) Urine Urobilinogen Normal mg/dL (Negative) Urine Leukocyte Esterase Negative /uL (Negative) Urine RBC <1 /hpf (0 - 3) Urine Microscopic WBC 1 /HPF (0-3) Urine Squamous Epithelial Cells None seen /hpf (<5) Urine Bacteria None seen /hpf (None Seen) Urine Glucose Normal mg/dL (Normal) Blood Gas Results Test 06/30/25 02:28 Arterial Blood pH 7.264 (7.350-7.450) FiO2 % 36.0 Assessment/Plan Assessment/Plan respiratory failure/ due respiratory depression from drugs/alcohol- better after narcan/on o2 now new onset atrial fibrillation- rate controlled with amiodarone/ question of svt vs atrial fibrillation on admission but was in atrial fibrillation this morning and started on amiodarone drip/educated/advised of complications alcohol intoxicationabuse/binge drinking/- no signs of withdrawl coccaine abuse- monitor arrythmias secondary to above- educated/offered rehab not interested h/o asthma stable denies any depression or anxiety prompting him to use above- just enjoys this - ambulatory status gi prophylaxis Plan discussed with: Patient, Other Date of Service: Jun 30, 2025 Billing Provider: AALIYAH SAUNDERS MD Common Visit Codes: [id number] INP/OBS CARE(MOD) AALIYAH SAUNDERS MD Jun 30, 2025 13:16
--- NOTE | 2025-06-30 15:14 | ECG ---
[facility] Test Date: 2025-06-30 Test Time: 15:12:46 Pat Name: HEBER RUIZ Department: Room: [address] [place] [address] Gender: M Senior Electrical Project Manager: FREDRICK : 2005 Requested By: PAYAM SIMS Order Number: [id number] Reading MD: Alec Kelley Measurements Intervals [place] Rate: 79 P: 55 IN: 157 QRS: -8 QRSD: 95 T: -9 QT: 391 QTc: 449 Interpretive Statements Sinus rhythm Nonspecific T abnormalities, inferior leads Baseline wander in lead(s) V1 Electronically Signed On 07-01-2025 19:18:23 PDT by Alec Kelley Please click the below link to view image of tracing.
[2025-06-30] MEDS ORDERED: AMIODARONE 360mg/200mL PREMIX 200 ML IV SCH (15:45)
[2025-06-30] MEDS: APIXABAN 5 MG TAB PO SCH (16:17)
[2025-06-30] MEDS: METOPROLOL TARTRATE 25 MG TAB PO SCH (16:19)
--- NOTE | 2025-06-30 22:56 | DVHINCON2 ---
Date Seen: Jun 30, 2025 Referring Physician RIGO Cade Reason for Consultation AFib with RVR History of Present Illness This is a 20-year-old male with a past medical history of asthma and drug abuse presents to the ED after a drug overdose. In the ED, he was noted to be in A-fib with RVR, prompting cardiology consultation. He was given one dose of IV diltiazem, after which he has ventricular rate improved to the 90s. On a ssessment, the patient remains in atrial fibrillation but denies chest pain, shortness of breath, palpitations, lightheadedness, or syncope. WBC 13.8. Chest x-ray showed NAD. Past Medical History Asthma Past Surgical History Denies Allergies: Coded Allergies: NO KNOWN ALLERGIES (Unverified , 10/24/11) Current Medications Current Medications Medications (Trade) Dose Ordered Sig/Sekou Route PRN Reason Start Time Stop Time Status Last Admin Levalbuterol HCl (Xopenex Medneb) 0.625 mg Q6HR NEB 06/30/25 06:00 Cancel Ceftriaxone Sodium 50 ml @ 100 mls/hr DAILY@0400 IV 07/01/25 04:00 Thiamine HCl 100 mg DAILY IV 06/30/25 10:00 06/30/25 10:04 Folic Acid 1 mg/ Dextrose 50.2 ml @ 200.8 mls/ hr DAILY INJ 06/30/25 10:00 06/30/25 09:43 Multivitamins (Mvi Tab) 1 tab DAILY PO 06/30/25 10:00 06/30/25 10:04 Levalbuterol HCl (Xopenex Medneb) 0.625 mg Q6HR NEB 06/30/25 06:00 06/30/25 11:16 Famotidine (Pepcid Injection) 20 mg Q12HR IV 06/30/25 10:00 06/30/25 10:04 Sodium Chloride (Saline Lock Ns) 10 ml Q8HR IV 06/30/25 06:00 06/30/25 13:51 Ondansetron HCl (Zofran) 4 mg Q4HP PRN IV NAUSEA / VOMITING 06/30/25 06:00 06/30/25 13:05 DC Docusate Sodium (Colace Capsule) 100 mg BIDPRN PRN PO FOR CONSTIPATION 06/30/25 06:00 Acetaminophen (Tylenol Tablet) 650 mg Q6HP PRN PO PAIN SCALE 1-3 OR TEMP>100.4 06/30/25 06:00 Nitroglycerin (Ntrostat Sublingual) 0.4 mg Q5MINP PRN SL FOR CHEST PAIN 06/30/25 06:00 06/30/25 13:05 DC Morphine Sulfate 2 mg Q30M PRN IV FOR CHEST PAIN 06/30/25 06:00 06/30/25 13:05 DC Amiodarone HCL/ Dextrose 200 ml @ 16.66 mls/ hr Q12H IV 06/30/25 15:45 Review of Systems Constitutional: No symptom reported Ears, Nose, & Throat: No symptom reported Eyes: No symptom reported Neurological: No symptoms reported Pulmonary/Respiratory: No symptom reported Cardiovascular: No symptom reported Gastrointestinal: No symptom reported Genitourinary: No symptom reported Musculoskeletal: No symptom reported Skin: No symptom reported Psychiatric: No symptom reported Endocrine: No symptom reported Hemotologic/Lymphatic: No symptom reported Vital Signs Vital Signs Date Time Temp Pulse Resp B/P (MAP) Pulse Ox O2 Delivery O2 Flow Rate FiO2 06/30/25 12:00 96 20 113/69 (84) 96 06/30/25 11:16 Nasal Cannula* 2 28 06/30/25 07:15 98.2 98.2 Physical Exam GENERAL: Alert and oriented x 3. No acute distress. EYES: PERRL, EOMI. Anicteric. HENT: Moist mucous membranes. LUNGS: Clear to auscultation bilaterally. CARDIOVASCULAR: Atrial fibrillation. ABDOMEN: Soft, nontender and nondistended. EXTREMITIES: No edema. NEUROLOGIC: No focal neurological deficits. SKIN: Warm, dry. Labs/Diagnostic Data Labs Test 06/30/25 08:57 06/30/25 02:28 06/30/25 02:27 Range/Units Urine Color Light-yellow Yellow Urine Clarity Clear Clear Urine pH 5.0 5.0-9.0 Urine Specific [place] 1.013 1.001-1.035 Urine Protein Trace H Negative Urine Ketones 1+ H Negative Urine Blood Negative Negative /uL Urine Nitrite Negative Negative Urine Bilirubin Negative Negative Urine Urobilinogen Normal Negative mg/dL Urine Leukocyte Esterase Negative Negative /uL Urine RBC <1 0 - 3 /hpf Urine Microscopic WBC 1 0-3 /HPF Urine Squamous Epithelial Cells None seen <5 /hpf Urine Bacteria None seen None Seen /hpf Urine Glucose Normal Normal mg/dL Urine Opiates Screen Neg NEGATIVE Urine Fentanyl Screen Neg NEGATIVE Urine Barbiturates Screen Neg NEGATIVE Urine Phencyclidine Screen Neg NEGATIVE Urine Amphetamines Screen Neg NEGATIVE Urine Benzodiazepines Screen Neg NEGATIVE Urine Cocaine Screen Pos NEGATIVE Urine Cannabinoids Screen Neg NEGATIVE Blood Gas Specimen Type Arterial Blood Gas Sample Site Right radial Blood Gas Patient Temperature 37.0 Arterial Blood Date Drawn [id number] Arterial Blood pH 7.264 L 7.350-7.450 Arterial Blood Partial Pressure CO2 39.0 35.0-48.0 mmHg Arterial Blood Partial Pressure O2 77.4 L 83.0-108.0 mmHg Arterial Blood HCO3 17.3 L 21.0-28.0 mmol/L Arterial Blood Oxygen Saturation 93.6 L 94.0-98.0 % Arterial Blood Base Excess -9.1 L -2.0-3.0 mmol/L Arterial Blood Oxyhemoglobin 92.5 L 94.0-98.0 % Arterial Blood Carboxyhemoglobin 0.5 0.5-1.5 % Arterial Blood Methemoglobin 0.7 0.0-1.5 % Jimbo Test Yes Blood Gas Total Hemoglobin 16.60 13.5-17.5 g/dL Blood Gas Modality Nasal cannula Blood Gas Spontaneous Rate 20 FiO2 % 36.0 White Blood Count 13.8 H 4.4-10.8 10^3/uL Red Blood Count 5.45 4.5-5.90 10^6/uL Hemoglobin 16.6 13.5-17.5 g/dL Hematocrit 50.4 41.0-53.0 % Mean Corpuscular Volume 92.5 80.0-100.0 fL Mean Corpuscular Hemoglobin 30.4 28.0-32.0 pg Mean Corpuscular Hemoglobin Concent 32.9 32.0-36.0 g/dL Red Cell Distribution Width 13.4 11.8-14.3 % Platelet Count 249 140-450 10^3/uL Mean Platelet Volume 8.0 6.9-10.8 fL Neutrophils (%) (Auto) 81.9 H 37.0-80.0 % Lymphocytes (%) (Auto) 10.5 10.0-50.0 % Monocytes (%) (Auto) 4.7 0.0-12.0 % Eosinophils (%) (Auto) 2.3 0.0-7.0 % Basophils (%) (Auto) 0.6 0.0-2.0 % Neutrophils # (Auto) 11.3 H 1.6-8.6 10 ^3/uL Lymphocytes # (Auto) 1.5 0.4-5.4 10 ^3/uL Monocytes # (Auto) 0.6 0-1.3 10 ^3/uL Eosinophils # (Auto) 0.3 0-0.8 10 ^3/uL Basophils # (Auto) 0.1 0-0.2 10 ^3/uL Nucleated Red Blood Cells 0.1 % Sodium Level 144 136-145 mmol/L Potassium Level 5.0 3.5-5.1 mmol/L Chloride Level 104 98-107 mmol/L Carbon Dioxide Level 27 20-31 mmol/L Anion Gap 13 5-15 Blood Urea Nitrogen 10 9-23 mg/dL Creatinine 1.27 0.700-1.30 mg/dL Glomerular Filtration Rate Calc 82 >90 mL/min BUN/Creatinine Ratio 7.9 L 10.0-20.0 Serum Glucose 138 H 74-106 mg/dL Calcium Level 8.9 8.7-10.4 mg/dL Magnesium Level 2.3 1.6-2.6 mg/dL Troponin I High Sensitivity 43 </=54 ng/L Triglycerides Level 107 < 150 mg/dL Cholesterol Level 189 < 200 mg/dL LDL Cholesterol 124 H < 100 mg/dL HDL Cholesterol 60 H 40-59 mg/dL Thyroid Stimulating Hormone (TSH) 1.07 0.55-4.78 uIU/mL Plasma/Serum Blood Alcohol 120.4 H <10 mg/dL Assessment AFib with RVR, CHADS-VASc score- 0. Polysubstance abuse. Obesity. Plan/Recommendation I agree with your ongoing assessment and care of plan. Patient has been seen by Maria Del Carmen Haddad NP on my behalf, her and I discussed the plan with the patient. Antiarrhythmic amiodarone per protocol. No anticoagulation indicated at this time given CHADS-VASc score = 0. Monitor electrolytes and replete as needed. Extensive counseling on cessation of substance abuse. Close cardiac monitoring. Additional plan as per the hospital course. Plan discussed with: Patient NYHA Physical activity limitations: NA Date of Service: Jun 30, 2025 Billing Provider: MIKE HOSKINS MD Cardiology Common Codes: [id number] INP/OBS CARE (High) Cardiology Consultation Codes: [id number] CONSULT <45MIN MIKE HOSKINS MD Jun 30, 2025 14:27
[2025-07-01] VITALS (7 sets, daily range): BP systolic 114; BP diastolic 60; PULSE 80–98; RESP 14–20; TEMP 97.9; O2SAT 93–100
[2025-07-01 06:38] LABS: Hematocrit 44.3 % (41.0-53.0); Hemoglobin 14.9 g/dL (13.5-17.5); Mean Corpuscular Hemoglobin 31.0 pg (28.0-32.0); Mean Corpuscular Volume 91.7 fL (80.0-100.0); Nucleated Red Blood Cells % 0.1 %
[2025-07-01 06:54] LABS: Alanine Aminotransferase 12 U/L (7-40); Albumin 4.1 g/dL (3.2-4.8); Alkaline Phosphatase 82 U/L (46-116); Anion Gap 10 (5-15); BUN/Creatinine Ratio 9.1 (10.0-20.0); Bilirubin, Total 0.5 mg/dL (0.2-1.0); Blood Urea Nitrogen 9 mg/dL (9-23); Calcium 8.8 mg/dL (8.7-10.4); Carbon Dioxide 27 mmol/L (20-31); Chloride 107 mmol/L (98-107); Glucose 102 mg/dL (74-106); Magnesium 1.9 mg/dL (1.6-2.6); Potassium 3.8 mmol/L (3.5-5.1); Sodium 144 mmol/L (136-145); Total Protein 6.7 g/dL (5.7-8.2)
--- NOTE | 2025-07-01 11:45 | ECG ---
[facility] Test Date: 2025-06-30 Test Time: 03:52:29 Pat Name: HEBER RUIZ Department: Room: [address] [place] [address] Gender: M Maintenance Team Member: DAFNE : 2005 Requested By: PAYAM SIMS Order Number: [id number] Reading MD: Alec Kelley Measurements Intervals [place] Rate: 117 P: 0 [place]: 0 QRS: -11 QRSD: 90 T: 38 QT: 336 QTc: 469 Interpretive Statements Atrial fibrillation Borderline prolonged QT interval Electronically Signed On 07-01-2025 19:18:05 PDT by Alec Kelley Please click the below link to view image of tracing.
[2025-07-01] MEDS ORDERED: NALO4SPR2 (15:01)
[2025-07-01] MEDS ORDERED: ALBU108A5 IN (15:01)
--- NOTE | 2025-07-01 15:13 | DVHDS2 ---
Discharge Summary Date of Admission Jun 30, 2025 at 05:56 Date of Discharge: Jul 01, 2025 Admitting Diagnosis Polysubstance abuse with overdose Labs/Diagnostic Data: Laboratory Results Test 07/01/25 06:10 06/30/25 08:57 06/30/25 02:28 06/30/25 02:27 White Blood Count 8.1 10^3/uL (4.4-10.8) Red Blood Count 4.83 10^6/uL (4.5-5.90) Hemoglobin 14.9 g/dL (13.5-17.5) Hematocrit 44.3 % (41.0-53.0) Mean Corpuscular Volume 91.7 fL (80.0-100.0) Mean Corpuscular Hemoglobin 31.0 pg (28.0-32.0) Mean Corpuscular Hemoglobin Concent 33.8 g/dL (32.0-36.0) Red Cell Distribution Width 13.2 % (11.8-14.3) Platelet Count 217 10^3/uL (140-450) Mean Platelet Volume 7.9 fL (6.9-10.8) Neutrophils (%) (Auto) 65.2 % (37.0-80.0) Lymphocytes (%) (Auto) 17.5 % (10.0-50.0) Monocytes (%) (Auto) 9.1 % (0.0-12.0) Eosinophils (%) (Auto) 7.8 % (0.0-7.0) Basophils (%) (Auto) 0.4 % (0.0-2.0) Neutrophils # (Auto) 5.3 10 ^3/uL (1.6-8.6) Lymphocytes # (Auto) 1.4 10 ^3/uL (0.4-5.4) Monocytes # (Auto) 0.7 10 ^3/uL (0-1.3) Eosinophils # (Auto) 0.6 10 ^3/uL (0-0.8) Basophils # (Auto) 0 10 ^3/uL (0-0.2) Nucleated Red Blood Cells 0.1 % Sodium Level 144 mmol/L (136-145) Potassium Level 3.8 mmol/L (3.5-5.1) Chloride Level 107 mmol/L (98-107) Carbon Dioxide Level 27 mmol/L (20-31) Anion Gap 10 (5-15) Blood Urea Nitrogen 9 mg/dL (9-23) Creatinine 0.99 mg/dL (0.700-1.30) Glomerular Filtration Rate Calc 110 mL/min (>90) BUN/Creatinine Ratio 9.1 (10.0-20.0) Serum Glucose 102 mg/dL (74-106) Calcium Level 8.8 mg/dL (8.7-10.4) Magnesium Level 1.9 mg/dL (1.6-2.6) Total Bilirubin 0.5 mg/dL (0.2-1.0) Aspartate Amino Transferase (AST) 15 U/L (13-40) Alanine Aminotransferase (ALT) 12 U/L (7-40) Alkaline Phosphatase 82 U/L (46-116) Total Protein 6.7 g/dL (5.7-8.2) Albumin 4.1 g/dL (3.2-4.8) Urine Color Light-yellow (Yellow) Urine Clarity Clear (Clear) Urine pH 5.0 (5.0-9.0) Urine Specific [place] 1.013 (1.001-1.035) Urine Protein Trace (Negative) Urine Ketones 1+ (Negative) Urine Blood Negative /uL (Negative) Urine Nitrite Negative (Negative) Urine Bilirubin Negative (Negative) Urine Urobilinogen Normal mg/dL (Negative) Urine Leukocyte Esterase Negative /uL (Negative) Urine RBC <1 /hpf (0 - 3) Urine Microscopic WBC 1 /HPF (0-3) Urine Squamous Epithelial Cells None seen /hpf (<5) Urine Bacteria None seen /hpf (None Seen) Urine Glucose Normal mg/dL (Normal) Urine Opiates Screen Neg (NEGATIVE) Urine Fentanyl Screen Neg (NEGATIVE) Urine Barbiturates Screen Neg (NEGATIVE) Urine Phencyclidine Screen Neg (NEGATIVE) Urine Amphetamines Screen Neg (NEGATIVE) Urine Benzodiazepines Screen Neg (NEGATIVE) Urine Cocaine Screen Pos (NEGATIVE) Urine Cannabinoids Screen Neg (NEGATIVE) Blood Gas Specimen Type Arterial Blood Gas Sample Site Right radial Blood Gas Patient Temperature 37.0 Arterial Blood Date Drawn [id number] Arterial Blood pH 7.264 (7.350-7.450) Arterial Blood Partial Pressure CO2 39.0 mmHg (35.0-48.0) Arterial Blood Partial Pressure O2 77.4 mmHg (83.0-108.0) Arterial Blood HCO3 17.3 mmol/L (21.0-28.0) Arterial Blood Oxygen Saturation 93.6 % (94.0-98.0) Arterial Blood Base Excess -9.1 mmol/L (-2.0-3.0) Arterial Blood Oxyhemoglobin 92.5 % (94.0-98.0) Arterial Blood Carboxyhemoglobin 0.5 % (0.5-1.5) Arterial Blood Methemoglobin 0.7 % (0.0-1.5) Jimbo Test Yes Blood Gas Total Hemoglobin 16.60 g/dL (13.5-17.5) Blood Gas Modality Nasal cannula Blood Gas Spontaneous Rate 20 FiO2 % 36.0 Hemoglobin A1c 5.4 % A1C (<5.7) Troponin I High Sensitivity 43 ng/L (</=54) Triglycerides Level 107 mg/dL (< 150) Cholesterol Level 189 mg/dL (< 200) LDL Cholesterol 124 mg/dL (< 100) HDL Cholesterol 60 mg/dL (40-59) Thyroid Stimulating Hormone (TSH) 1.07 uIU/mL (0.55-4.78) Plasma/Serum Blood Alcohol 120.4 mg/dL (<10) Other Laboratory Tests 07/01/25 06:10 Brief Hx & Hospital Course: History of Present Illness The patient is a 20-year-old male with past medical history of asthma and polydrug abuse who presented to [facility] ED for evaluation of overdose. As reported by EMS, patient was picked up at his home unresponsive, O2 saturation in the 40s on room air, and was given 2 mg of Narcan, breathing treatment with positive effect. Patient gradually waking up. Patient was seen and evaluated in the ED admit that he took cocaine and alcohol, laboratory data shows WBC 13.8, platelets 249, sodium 144, potassium 5.0, BUN 10, creatinine 1.27, glucose 138, calcium 8.9, troponin 43, serum alcohol 120.4, blood pressure 125/55, heart rate 171 trending down to 122, temperature 98.1 F, O2 saturation 97% on oxygen. Chest x-ray show no evidence of acute cardiopulmonary abnormality. Please see medication orders section in the computer. On my assessment, patient remains mild altered, denies suicidal ideation, no diaphoresis, currently on oxygen, no diarrhea, no vomiting, no fever, no chills. Patient was admitted for further evaluation and medical management. Course of hospitalization: After supportive measures and initially dose of Narcan, patient's clinical status improved dramatically. Patient is now A&O x4, ambulating without any dyspnea, and found to be with normal vital signs. Discussion made with the patient regarding in his polysubstance abuse, reveals that he was with his friend, partying, with the patient stating that he rarely uses alcohol or drugs. Patient is refusing social service resources for substance abuse. Patient is requesting to be discharged home. Given patient has improved clinically, he will be discharged home with a new prescription for his albuterol rescue inhaler as well as Narcan nasal spray. He has been educated on the need to abstain from drug use. All questions answered. Physical examination General: Alert and Oriented x3. No acute distress. Well-nourished. Eyes: EOMI. Anicteric. HENT: Moist mucous membranes. Lungs: Clear to auscultation bilaterally. No accessory muscle use. Cardiovascular: Regular rate and rhythm. No murmur. No JVD. Abdomen: Soft, non-tender and non-distended. No palpable masses. Extremities: No edema. Non-tender. Skin: No rashes or lesions. Warm. Neurologic: No focal neurological deficits. CN II-XII grossly intact, but not individually tested. Psychiatric: Cooperative. Appropriate mood and affect. Total time spent with patient discussing and formulating plan of care: 35 minutes. This medical document was created using an electronic medical record system with [employer] dictation system. Although this document has been carefully reviewed, there may still be some phonetic and typographical errors. These areas are purely typographical due to imperfections of the software programs, and do not reflect any compromise in the patient's medical care. Condition at Discharge: Fair Final Diagnosis/Problems List Polysubstance abuse with overdose Secondary diagnosis: AFib with RVR, resolved Asthma exacerbation Discharge Disposition: Home Discharge Instruct/Medications Diet: Regular Activity: No Restrictions, As Tolerated Follow Up/Referral: Follow up with the PCP in 1-2 weeks Medications: Narcan nasal spray 4 mg as needed for possible overdose in the future -albuterol rescue inhaler, two puffs q.4 hours as needed for has been attack Scheduled Naloxone HCl (Narcan), 4 MG NA PRN Scheduled PRN Albuterol Sulfate (Albuterol Sulfate Hfa), 108 MCG IN Q4HPRN PRN 36 Discharge Statement: "Patient was advised to return to the ER or call 911 if any headaches, dizziness, shortness of breath, chest pain, abdominal pain, bleeding, fevers, or worsening of medical condition. Patient was counseled about treatment plan, medications, possible side effects, patientverbalized understanding. All questions were answered to the best of my ability. This discharge took greater then 30 minutes in planning, reviewing documentation, counseling the patient, and discussing with other team members." ASSESSMENT ASSESSMENT Assessment Polysubstance abuse with overdose Date of Service: Jul 01, 2025 Billing Provider: CHON PONCE NP Common Visit Codes: [id number] INP/OBS CARE(HIGH) CHON PONCE NP Jul 01, 2025 15:13
--- NOTE | 2025-07-01 23:43 | DVHPN2 ---
Progress Note - Dictate Date Seen: Jul 01, 2025 Medical Necessity Reason Pt with a Central, PICC or Fol: No Subjective Patient was seen and evaluated in follow up. Patient has no new complaints at this time. Patient denies any cardiac symptoms. Patient is cardiac stable for discharge. Telemetry reviewed. vital signs Vital Sign Date Time Temp Pulse Resp B/P (MAP) Pulse Ox O2 Delivery O2 Flow Rate FiO2 07/01/25 16:21 97.9 80 20 98 07/01/25 11:42 Room Air* 0 21 07/01/25 10:00 114/60 (78) Total Intake and Output 06/30/25 06/30/25 07/01/25 14:59 22:59 06:59 Intake Total 1193.52 ml 123.33 ml Output Total 850 ml Balance 343.52 ml 123.33 ml medications Current Medications Medications Dose Ordered Sig/Sekou Route Start Time Stop Time Status Last Admin Dose Admin Levalbuterol HCl 0.625 mg Q6HR NEB 06/30/25 06:00 Cancel objective GENERAL: Alert and oriented x 3. No acute distress. EYES: PERRL, EOMI. Anicteric. HENT: Moist mucous membranes. LUNGS: Clear to auscultation bilaterally. CARDIOVASCULAR: Atrial fibrillation. ABDOMEN: Soft, nontender and nondistended. EXTREMITIES: No edema. NEUROLOGIC: No focal neurological deficits. SKIN: Warm, dry. laboratory and microbiology Laboratory Tests 07/01/25 06:10 Test 07/01/25 06:10 Range/Units Serum Glucose 102 74-106 mg/dL Problem List AFib with RVR, CHADS-VASc score- 0. Polysubstance abuse. Obesity. Assessment/Plan Continued all current supportive medical care. No anticoagulation indicated at this time given CHADS-VASc score = 0. Monitor electrolytes and replete as needed. Extensive counseling on cessation of substance abuse. Additional plan as per the hospital course. Plan discussed with: Patient MIKE HOSKINS MD Jul 01, 2025 23:43
--- NOTE | 2025-07-02 16:03 | ECG ---
[facility] Test Date: 2025-06-30 Test Time: 02:10:46 Pat Name: HEBER RUIZ Department: Room: [address] [place] [address] Gender: M Artificial Fly Tier: DAFNE : 2005 Requested By: LAUREN CHAUDHRY Order Number: [id number] Reading MD: Alec Kelley Measurements Intervals [place] Rate: 171 P: 0 VA: 0 QRS: 2 QRSD: 94 T: 55 QT: 292 QTc: 493 Interpretive Statements Atrial fibrillation Ventricular premature complex Prolonged QT interval Electronically Signed On 07-02-2025 16:33:51 PDT by Alec Kelley Please click the below link to view image of tracing.
== END 2025-07-01 16:20 | disposition home or self-care (01) | DRG 812 ==
LOC: EDBD 02:05 → ER 02:05 → OVERFLOW 05:56
PROVIDERS: ADMIT Nurse Practitioner Acute Care; ATTEND Nurse Practitioner Acute Care
DX: T50.991A Poisoning by other drugs, medicaments and biological substances, accidental (unintentional), initial encounter (principal); J96.90 Respiratory failure, unspecified, unspecified whether with hypoxia or hypercapnia; G93.89 Other specified disorders of brain; I47.10 Supraventricular tachycardia, unspecified; J45.901 Unspecified asthma with (acute) exacerbation; I48.91 Unspecified atrial fibrillation; F19.10 Other psychoactive substance abuse, uncomplicated; F10.129 Alcohol abuse with intoxication, unspecified; E66.9 Obesity, unspecified; Z79.899 Other long term (current) drug therapy; Y92.89 Other specified places as the place of occurrence of the external cause; Y90.6 Blood alcohol level of 120-199 mg/100 ml
CPT/HCPCS: 36415; 36600; 71045; 80048; 80053; 80061; 80307; 80320; 81001; 82805; 83036; 83735; 84443; 84484; 85025; 87040; 93005; 94640; 96361; 96365; 99291; G0378; J3490; J7060